=== PATIENT | female | born 1975 | race African-American/Black ===

== ENCOUNTER 2022-06-04 16:04 | Emergency (ER) | payer OTHER ==
[~2022-06-04] VITALS: Ht 160 cm; Wt 81.6 kg
[2022-06-04] MEDS ORDERED: diphenhydrAMINE HCL 50 MG CAPSULE ONE (16:45)
[2022-06-04] MEDS ORDERED: FAMOTIDINE (20 MG) 20 MG TABLET ONE (16:45)
[2022-06-04] MEDS ORDERED: predniSONE 20 MG TABLET ONE (16:45)
[2022-06-04] MEDS ORDERED: diphenhydrAMINE HCL 25 MG CAPSULE PO ONE (17:00)
[2022-06-04] MEDS ORDERED: predniSONE 50 MG TABLET PO ONE (17:00)
[2022-06-04] MEDS ORDERED: FAMOTIDINE (20 MG) 20 MG TABLET PO ONE (17:00)
--- NOTE | 2022-06-04 17:40 | NUR ---
PO MEDS GIVEN INDICATED, ALEX WELL.
[2022-06-04] MEDS ORDERED: PRED50TA PO (17:50)
[2022-06-04 17:52] VITALS: BP 115/67
--- NOTE | 2022-06-04 17:52 | NUR ---
Patient discharged to home in stable condition. Written and verbal after care instructions given. Patient verbalizes understanding of instruction.
== END 2022-06-04 17:53 | disposition home or self-care (01) ==
LOC: ER 16:07
DX: R22.0 Localized swelling, mass and lump, head (principal); T39.315A Adverse effect of propionic acid derivatives, initial encounter
CPT/HCPCS: 99284; Q0163; J7512